=== PATIENT | female | born 1990 | race Native Hawaiian/Other Pacific Islander ===

== ENCOUNTER 2019-08-14 08:50 | Emergency (ER) | payer OTHER ==
[~2019-08-14] VITALS: Ht 157.5 cm; Wt 65.3 kg
[2019-08-14 09:45] VITALS: BP 157/87; TEMP 98.1
== END 2019-08-14 09:45 | disposition home or self-care (01) ==
LOC: ED 08:50
DX: J06.9 Acute upper respiratory infection, unspecified (principal)
CPT/HCPCS: 87502; 87651; 99283

== ENCOUNTER 2022-02-26 15:52 | Outpatient (CLI) | payer OTHER | END 2022-02-26 19:28 | disposition home or self-care (01) | LOC: RAD 15:52 | PROVIDERS: ATTEND Nurse Practitioner | DX: R07.89 Other chest pain (principal) ==

== ENCOUNTER 2022-08-02 11:23 | Emergency (ER) | payer OTHER ==
[~2022-08-02] VITALS: Ht 157.5 cm; Wt 86.2 kg
[2022-08-02 12:00] LABS: PLATELET COUNT 210 K/uL (152-353)
[2022-08-02 12:15] LABS: POTASSIUM 3.2 mmol/L (3.6-5.2)
[2022-08-02 13:53] VITALS: BP 136/86; TEMP 98.9
== END 2022-08-02 13:53 | disposition home or self-care (01) ==
LOC: ED 11:23
PROVIDERS: Family Medicine
DX: K52.89 Other specified noninfective gastroenteritis and colitis (principal); E87.6 Hypokalemia; Z32.02 Encounter for pregnancy test, result negative
CPT/HCPCS: 36415; 80053; 81000; 81025; 82150; 85027; 99282